=== PATIENT | male | born 1950 | race Caucasian/White ===

== ENCOUNTER → 2019-06-02 | Outpatient (CLI) | payer MEDICARE, OTHER ==
[~2019-06-02] MED LIST: ACET-1600 PO; CALC1CAP8 PO; CYAN25009 PO; MAGN400T36 PO; MILK175T PO; MULT-516 PO; OMEP20TA62 PO; STOOL SOFTENER PO; TURM500C4 PO; UBID100C41 PO; VITA100C8 PO; ZINC PO; [UNRECOGNIZED DRUG - OTHER] PO; [UNRECOGNIZED DRUG - OTHER] PO
[2019-06-02 10:16] LABS: BASOPHILS # (AUTO) 0.04 x10^3/uL (0-0.1); BASOPHILS % (AUTO) 1 % (0-1); EOSINOPHILS # (AUTO) 0.13 x10^3/uL (0-0.4); EOSINOPHILS % (AUTO) 2 % (1-7); LYMPHOCYTES # (AUTO) 2.44 x10^3/uL (1-3.4); LYMPHOCYTES % (AUTO) 46 % (22-44); MD NO; MEAN CORPUSCULAR HEMOGLOBIN 31.2 pg (27.5-34.5); MEAN CORPUSCULAR HGB CONC 33.9 g/dL (33.2-36.2); MEAN PLATELET VOLUME 6.1 fL (7.4-10.4); MONOCYTES # (AUTO) 0.47 x10^3/uL (0.2-0.8); MONOCYTES % (AUTO) 9 % (2-9); NEUTROPHILS # (AUTO) 2.27 x10^3/uL (1.8-6.8); NEUTROPHILS % (AUTO) 43 % (42-75); PLATELET COUNT 232 x10^3/uL (130-400); RED BLOOD COUNT 5.23 x10^6/uL (4.38-5.82); RED CELL DISTRIBUTION WIDTH 13.2 % (9.4-14.8)
[2019-06-02 10:20] LABS: MICROSCOPIC NOT IND
[2019-06-02 10:22] LABS: CULTURE INDICATED? NO
[2019-06-02 10:25] LABS: ANION GAP 7 mmol/L (5-15); CALCIUM 9.3 mg/dL (8.5-10.1); CHLORIDE 107 mmol/L (98-107); CREATININE 0.98 mg/dL (0.7-1.3)
[2019-06-02 10:27] LABS: INTERNATIONAL NORMALIZED RATIO 0.96 (0.93-1.1); PROTHROMBIN TIME 10.1 Seconds (9.6-11.5)
== END | disposition home or self-care (01) ==
LOC: STAR 09:24
PROVIDERS: ATTEND Neurological Surgery
DX: Z01.818 Encounter for other preprocedural examination (principal); M48.062 Spinal stenosis, lumbar region with neurogenic claudication; M54.16 Radiculopathy, lumbar region
CPT/HCPCS: 36415; 71046; 80048; 81003; 85025; 85610; 85730; 93005

== ENCOUNTER 2019-06-15 08:00 | Day surgery (SDC) | payer MEDICARE ==
[~2019-06-15] VITALS: Ht 175.3 cm; Wt 86.5 kg
[~2019-06-15 08:00] MED LIST changes: +BACITRACIN 50,000 UNIT ONE; +BUPIVACAINE/PF 0.5% ONE; +EPINEPHRINE 1 MG/ML, 1ML ONE; +THROMBIN 5,000 UNIT VIAL TP ONE; +VANCOMYCIN 1,000 MG ONE
[2019-06-15] MEDS ORDERED: LACTATED RINGERS 1,000 ML IV SCH (09:50)
[2019-06-15] MEDS ORDERED: FENTANYL PF 250 MCG/5ML ONE (09:52)
[2019-06-15] MEDS ORDERED: MIDAZOLAM 1 MG/ML, 2ML ONE (09:52)
[2019-06-15] MEDS ORDERED: EPINEPHRINE 1 MG/ML, 1ML ONE (10:34)
[2019-06-15] MEDS ORDERED: BUPIVACAINE/PF 0.5% ONE (10:34)
[2019-06-15] MEDS ORDERED: BACITRACIN 50,000 UNIT ONE (10:35)
[2019-06-15] MEDS ORDERED: DEXAMETHASONE 4 MG/ML, 1ML ONE (11:05)
[2019-06-15] MEDS ORDERED: ROCURONIUM 10 MG/ML,10ML ONE (11:05)
[2019-06-15] MEDS ORDERED: PROPOFOL 10 MG/ML, 20ML ONE (11:05)
[2019-06-15] MEDS ORDERED: SUCCINYLCHOLINE 20 MG/ML, 10ML ONE (11:05)
[2019-06-15] MEDS ORDERED: ONDANSETRON 2MG/ML, 2ML ONE (11:05)
[2019-06-15] MEDS ORDERED: CEFAZOLIN 1,000 MG ONE (11:05)
[2019-06-15] MEDS ORDERED: hydrALAzine 20 MG/ML, 1ML IV PRN (11:30)
[2019-06-15] MEDS ORDERED: PROMETHAZINE 25 MG/ML, 1ML IV PRN (11:30)
[2019-06-15] MEDS ORDERED: MEPERIDINE/PF 25MG/0.5ML IVPush PRN (11:30)
[2019-06-15] MEDS ORDERED: ONDANSETRON 2MG/ML, 2ML IVPush PRN (11:30)
[2019-06-15] MEDS ORDERED: ALBUTEROL SULFATE 2.5 MG/3 ML NPPB PRN (11:30)
[2019-06-15] MEDS ORDERED: LABETALOL 5MG/ML, 20ML IV PRN (11:30)
[2019-06-15] MEDS ORDERED: KETOROLAC 30 MG/1 ML IV PRN (11:30)
[2019-06-15] MEDS ORDERED: METOCLOPRAMIDE 5 MG/ML, 2ML IV PRN (11:30)
[2019-06-15] MEDS ORDERED: VANCOMYCIN 1,000 MG ONE (11:40)
[2019-06-15] MEDS ORDERED: FENTANYL PF 100 MCG/2ML ONE ×2 (12:44→13:01)
[2019-06-15] MEDS: FENTANYL PF 100 MCG/2ML IV PRN ×4 (12:46→13:24)
[2019-06-15] MEDS ORDERED: METHOCARBAMOL 1,000 MG in DEXTROSE 5% 100 ML IV ONE (13:00)
[2019-06-15] MEDS ORDERED: OXYcodone 5 MG/5 ML ORAL.SOL UDC ONE ×2 (13:01→13:38)
[2019-06-15] MEDS: OXYcodone 5 MG/5 ML ORAL.SOL UDC PO PRN ×2 (13:05→13:38)
[2019-06-15] MEDS ORDERED: MEPERIDINE/PF 25MG/ML,1ML ONE (13:10)
[2019-06-15] MEDS ORDERED: HYDROmorphone 1 MG/ML, 1ML INJ ONE (13:37)
[2019-06-15] MEDS: HYDROmorphone 1 MG/ML, 1ML INJ IV PRN ×2 (13:41→14:02)
[2019-06-15] MEDS: HYDROcodone/APAP 10/325 MG TABLET PO PRN ×2 (14:48→20:23)
[2019-06-15] MEDS: D5%-0.9% NACL+KCL 20MEQ 1,000 ML IV SCH (14:48)
[2019-06-15] MEDS ORDERED: BISACODYL 10 MG SUPP PR PRN (15:00)
[2019-06-15] MEDS ORDERED: DIPHENHYDRAMINE 50 MG/ML, 1ML IM PRN (15:00)
[2019-06-15] MEDS ORDERED: MAGNESIUM HYDROXIDE 8%, 30ML UDC PO PRN (15:00)
[2019-06-15] MEDS ORDERED: ONDANSETRON 2MG/ML, 2ML IV PRN (15:00)
[2019-06-15] MEDS ORDERED: DIPHENHYDRAMINE 25 MG CAPSULE PO PRN (15:00)
[2019-06-15] MEDS ORDERED: HYDROmorphone 2 MG/ML, 1ML IM PRN (15:00)
[2019-06-15] MEDS ORDERED: HYDROmorphone 2MG TABLET PO PRN (15:00)
[2019-06-15] MEDS ORDERED: DIPHENHYDRAMINE 50 MG/ML, 1ML IVPush PRN (15:00)
[2019-06-15] MEDS ORDERED: HYDROcodone/APAP 5/325 TABLET PO PRN (15:00)
[2019-06-15] MEDS ORDERED: PROMETHAZINE 25 MG/ML, 1ML IM PRN (15:00)
[2019-06-15] MEDS: METHOCARBAMOL 750 MG TABLET PO PRN (17:36)
[2019-06-15 19:45] VITALS: BP 141/85
[2019-06-15] MEDS: CEFAZOLIN PMX 1GM/50ML 50 ML IVPB SCH (20:23)
[2019-06-15 23:44] VITALS: BP 153/96
[2019-06-16 00:07] VITALS: BP 143/81
[2019-06-16] MEDS: D5%-0.9% NACL+KCL 20MEQ 1,000 ML IV SCH ×2 (01:00→11:00)
[2019-06-16 03:40] VITALS: BP 132/73
[2019-06-16] MEDS: CEFAZOLIN PMX 1GM/50ML 50 ML IVPB SCH (04:23)
[2019-06-16] MEDS: HYDROcodone/APAP 10/325 MG TABLET PO PRN ×4 (04:24→14:11)
[2019-06-16] MEDS ORDERED: OMEPRAZOLE 20 MG CAPSULE.DR PO SCH (06:00)
[2019-06-16] MEDS ORDERED: ENOXAPARIN 40 MG/0.4 ML SQ SCH (06:00)
[2019-06-16 07:40] VITALS: BP 126/72
[2019-06-16] MEDS: METHOCARBAMOL 750 MG TABLET PO PRN (08:26)
[2019-06-16] MEDS ORDERED: SENNA/DOCUSATE TABLET PO SCH (09:00)
[2019-06-16 14:15] VITALS: BP 126/73
[2019-06-16] MEDS ORDERED: METH750T87 PO (16:53)
[2019-06-16] MEDS ORDERED: HYDR-3240 PO (16:53)
== END 2019-06-16 17:34 | disposition home or self-care (01) ==
LOC: SDC 08:00 → ORIP 09:13 → UNDOADMIN 09:13 → EDSTATUS 09:30 → ORIP 14:23 → 4NE 14:23 → SDC 06-16 17:34 → UNDODISIN 06-16 17:34
PROVIDERS: ATTEND Neurological Surgery
DX: M48.062 Spinal stenosis, lumbar region with neurogenic claudication (principal); M51.16 Intervertebral disc disorders with radiculopathy, lumbar region; M51.17 Intervertebral disc disorders with radiculopathy, lumbosacral region; I10 Essential (primary) hypertension; M19.012 Primary osteoarthritis, left shoulder; M19.011 Primary osteoarthritis, right shoulder; Z79.899 Other long term (current) drug therapy; Z87.891 Personal history of nicotine dependence; Z98.890 Other specified postprocedural states
CPT/HCPCS: 63042; 63044; 72100; 97161; 97165; J0171; J0330; J0690; J1100; J1170; J1650; J2175; J2250; J2405; J2704; J2800; J3010; J3370; J3480; G0378